=== PATIENT | male | born 1970 | race Caucasian/White ===

== ENCOUNTER 2017-07-07 17:04 | Emergency (ER) | payer SELFPAY ==
[~2017-07-07] VITALS: Ht 180.3 cm; Wt 79.4 kg
--- NOTE | 2017-07-07 17:04 | NUR ---
BBRA 89 FROM HOME C/O ETOH INTOXICATION B.S. 126 IN FIELD
[2017-07-07 17:33] LABS: BASOPHILS # (AUTO) 0.1 /CMM (0.0-0.2); BASOPHILS % (AUTO) 1.5 % (0.0-2.0); EOSINOPHILS % (AUTO) 0.2 % (0.0-6.0); HEMATOCRIT 49 % (39-51); HEMOGLOBIN 17.1 g/dL (13.5-17.5); LYMPHOCYTES # (AUTO) 1.3 /CMM (0.8-4.8); LYMPHOCYTES % (AUTO) 21.3 % (20.0-44.0); MEAN CORPUSCULAR HGB CONC 35 g/dl (31.0-36.0); MEAN CORPUSCULAR VOLUME 97 fL (80-96); MONOCYTES # (AUTO) 0.8 /CMM (0.1-1.30); MONOCYTES % (AUTO) 12.2 % (2.0-12.0); NEUTROPHILS % (AUTO) 64.8 % (43.0-81.0); PLATELET COUNT (AUTO) 226 /CMM (150-450); RDW COEFFICIENT OF VARIATION 12.7 (11.5-15.0); RED BLOOD CELL COUNT(AUTO) 5.07 MIL/uL (4.5-6.0); WHITE BLOOD COUNT (AUTO) 6.2 K/uL (4.3-11.0)
[2017-07-07 17:44] LABS: CALCIUM, SERUM 8.3 mg/dL (8.5-10.1); CARBON DIOXIDE 26 mmol/L (21-32); CHLORIDE 97 mmol/L (98-107); CREATININE 0.8 mg/dL (0.6-1.3); GLUCOSE 147 mg/dL (74-106); POTASSIUM 3.8 mmol/L (3.5-5.1); SODIUM SERUM 136 mmol/L (136-145); UREA NITROGEN, BLOOD 7 mg/dL (7-18)
[2017-07-07 17:51] LABS: ALANINE AMINOTRANSFERASE 106 U/L (12-78); ALBUMIN 3.9 g/dL (3.4-5.0); ALCOHOL, BLOOD 376 mg/dL (0-0); ALKALINE PHOSPHATASE 68 U/L (46-116); ASPARTATE AMINOTRANSFERASE 74 U/L (15-37); BILIRUBIN,DIRECT 0.2 mg/dL (0.0-0.2); BILIRUBIN,TOTAL 0.5 mg/dL (0.2-1.0); SALICYLATE 1.7 mg/dL (2.8-20.0); TOTAL PROTEIN, SERUM 7.2 g/dL (6.4-8.2)
[2017-07-07 17:52] LABS: ACETAMINOPHEN < 10 ug/ml (10-30)
--- NOTE | 2017-07-07 17:54 | NUR ---
URINE SAMPLE COLLECTED SENT TO LAB
[2017-07-07 17:59] LABS: APPEARANCE,URINE Clear (CLEAR); BILIRUBIN,URINE Negative (NEGATIVE); BLOOD, URINE Negative Ery/uL (NEGATIVE); COLOR,URINE Yellow (YELLOW); KETONES,URINE 15 (NEGATIVE); LEUKOCYTE ESTERASE ,URINE Negative (NEGATIVE); NITRITE, URINE Negative (NEGATIVE); PROTEIN,URINE 100 mg/dl (NEGATIVE); UGLUCOSE Negative (NEGATIVE); UROBILINOGEN,URINE 0.2 EU/dL (0.2)
--- NOTE | 2017-07-07 19:26 | NUR ---
MINNIE MATHUR, FRIEND CAN PICK HIM UP WHEN READY TO BE DC
--- NOTE | 2017-07-07 19:40 | NUR ---
PATIENT IS AWAKE, ALERT AND ORIENTED X2. BREATHING EVEN AND UNLABORED. NAD NOTED. DENIES ANY COMPLAINTS AT THIS TIME. SAFETY MAINTAINED.
--- NOTE | 2017-07-07 22:10 | NUR ---
SPOKE TO MINNIE AND HE SAID, HE IS GOING TO [facility] APPOINTMENTS PATIENT IN 45MINS.
[2017-07-07] MEDS ORDERED: LORAZEPAM 1 MG TABLET PO ONE (22:30)
[2017-07-07] MEDS ORDERED: LORAZEPAM 1 MG TABLET ONE (22:44)
--- NOTE | 2017-07-07 22:57 | NUR ---
Patient discharged to home in stable condition. Written and verbal after care instructions given. Patient verbalizes understanding of instruction. Patient is ambulatory with steady gait, vss. nad noted. no further complaints.
[2017-07-07 22:59] VITALS: BP 140/72
== END 2017-07-07 22:59 | disposition home or self-care (01) ==
LOC: ER 17:06
DX: F10.129 Alcohol abuse with intoxication, unspecified (principal); R74.0 Nonspecific elevation of levels of transaminase and lactic acid dehydrogenase [LDH]
CPT/HCPCS: 36415; 80048; 80076; 80305; 80329; 81001; 85025; 99284; A4606; G0480 ×2; Z7610; 81000-TC